=== PATIENT | female | born 1995 | race Caucasian/White ===

== ENCOUNTER 2017-02-21 18:30 | Emergency (ER) | payer OTHER ==
[2017-02-21 18:58] VITALS: BP 116/76; PULSE 87; TEMP 98.3; BMI 38.7
--- NOTE | 2017-02-21 20:19 | PDOC ---
History of Present Illness - General Chief Complaint: Rash Stated Complaint: BREAST PAIN/RASH Time Seen by Provider: 02/21/17 19:23 History Source: Patient Exam Limitations: No Limitations - History of Present Illness Initial Comments: 02/21/17 20:12 Patient is a 21-year-old female morbidly obese presents emergency department for evaluation of dry cracked nipples bilaterally. Patient denies any new lotions soaps or detergents, has been applying her eczema cream which has made it worse. Also states that she has occasional mucus vaginally with no odor, no watery discharge, no bleeding, and is not sexually active, mucous only occurs at certain times of the month. Patient also requesting evaluation for eczema. Past Medical History: Denies. Allergies: No known allergies Medications: Family History: Non-contributory Social History: Denies smoking, alcohol use, or IVDU Vital signs on arrival are notable for pulse of 96. Review of Systems GENERAL/CONSTITUTIONAL: No fever or chills. No weakness. No weight change. HEAD, EYES, EARS, NOSE AND THROAT: No change in vision. No ear pain or discharge. No sore throat. CARDIOVASCULAR: No chest pain or shortness of breath. RESPIRATORY: No cough, wheezing, or hemoptysis. GASTROINTESTINAL: No nausea, vomiting, diarrhea or constipation. No rectal bleeding. GENITOURINARY: No dysuria, frequency, or change in urination. MUSCULOSKELETAL: No joint or muscle swelling or pain. No neck or back pain. SKIN : No rash or easy bruising. Dry pruritic cracked nipples with no discharge. Multiple patches of dry skin consistent with eczema NEUROLOGIC: No headache, vertigo, loss of consciousness, or loss of sensation. PSYCHIATRIC: No depression or anxiety. ENDOCRINE: No increased thirst. No abnormal weight change. HEMATOLOGIC/LYMPHATIC: No anemia, easy bleeding, or history of blood clots. ALLERGIC/IMMUNOLOGIC: No hives or skin allergy. No latex allergy. Physical Exam: GENERAL: The patient is awake, alert, and fully oriented, in no acute distress. EYES: Pupils equal, round and reactive to light, extraocular movements intact, sclera anicteric, conjunctiva clear. ENT: Ears normal, nares patent, oropharynx clear without exudates. Moist mucous membranes. No uvula deviation NECK: Normal range of motion, supple without lymphadenopathy, JVD, or masses. LUNGS: Breath sounds equal, clear to auscultation bilaterally. No wheezes, and no crackles. HEART: Regular rate and rhythm, normal S1 and S2 without murmur, rub or gallop. ABDOMEN: Soft, nontender, normoactive bowel sounds. No guarding, no rebound. No masses. No bruising or abrasions GENITALIA: Cervical os is Closed, cervix nonfriable, no discharge. MUSCULOSKELETAL: Normal range of motion, no edema. No clubbing or cyanosis. No cords, erythema, or tenderness. No CVA Tenderness with fist. NEUROLOGICAL: Cranial nerves II through XII grossly intact. Normal speech, normal gait. PSYCH: Normal mood, normal affect. SKIN/ BREAST: Warm, Dry, normal turgor, no rashes or lesions noted. Dry pruritic cracked skin to bilateral nipples with no dimpling, no discharge, no erythema or edema. Both patches of scaling dry skin to wrists neck and torso. 02/21/17 20:23 Past History - Past Medical History Allergies/Adverse Reactions: Allergies Allergy/AdvReac Type Severity Reaction Status Date / Time No Known Allergies Allergy Verified 02/21/17 18:53 Home Medications: Ambulatory Orders Mineral Oil/Hydrophil Petrolat [Aquaphor Healing Ointment] 50 gm TP BID #1 oint...g. 02/21/17 Nystatin Cream [Mycostatin Cream -] 1 applic TP BID #1 applic 02/21/17 Other medical history: denies - Immunization History Immunization Up to Date: Yes - Suicide/Smoking/Psychosocial Hx Smoking History: Never smoked Hx Alcohol Use: No Drug/Substance Use Hx: No *Physical Exam - Vital Signs Last Vital Signs Temp Pulse Resp BP Pulse Ox 98.3 F 87 20 116/76 100 02/21/17 18:54 02/21/17 18:54 02/21/17 18:54 02/21/17 18:54 02/21/17 18:54 Medical Decision Making - Medical Decision Making 02/21/17 20:15 A/P: Patient here for evaluation of dry cracked nipples consistent with a fungal type infection, patient also with several patches of eczema patient will be given referral for asphalt dauber will give patient prescription for nystatin cream for bilateral nipples as well as recommending Aquaphor. Patient to follow -up with [facility] explained to patient since she is sexually active and there is no evidence of vaginal infection mucus can be normal during cycles because of hormonal imbalances. Patient will follow up, I discussed the physical exam findings, ancillary test results and final diagnoses with the patient. I answered all of the patient's questions. The patient was satisfied with the care received and felt comfortable with the discharge plan and treatment plan. The patient will call to arrange follow-up and will return to the Emergency Department with any new, persistent or worsening symptoms. *DC/Admit/Observation/Transfer Diagnosis at time of Disposition: Nipple dermatitis, Vaginal discharge Eczema Qualifiers: Eczema type: other Qualified Code(s): L30.8 - Other specified dermatitis; L30.8 - Other specified dermatitis - Discharge Dispostion Disposition: HOME Condition at time of disposition: Good Admit: No - Prescriptions Prescriptions: Mineral Oil/Hydrophil Petrolat [Aquaphor Healing Ointment] 50 gm TP BID #1 oint...g. Nystatin Cream [Mycostatin Cream -] 1 applic TP BID #1 applic - Referrals Referrals: Triston Garrett [Non Staff, Medical] - ([phone]) [facility] [place] [place] [Provider Group] - Patient Instructions Additional Instructions: No new lotions, soaps or detergents Follow up with [facility] and Dermatology.
== END 2017-02-21 20:27 | disposition home or self-care (01) ==
LOC: JERFT 18:30
DX: L30.8 Other specified dermatitis (principal); N89.8 Other specified noninflammatory disorders of vagina
CPT/HCPCS: 99281-25

== ENCOUNTER 2017-07-26 11:57 | Emergency (ER) | payer OTHER ==
[2017-07-26 12:03] VITALS: BP 124/74; PULSE 100; TEMP 98.3; BMI 41.9
--- NOTE | 2017-07-26 12:30 | PDOC ---
History of Present Illness - General Chief Complaint: Chest Pain Stated Complaint: COUGH Time Seen by Provider: 07/26/17 12:20 History Source: Patient, Care Provider Exam Limitations: No Limitations - History of Present Illness Initial Comments: 07/26/17 12:35 Pleuritic Chest pain. States has had URI x 1 week+ and was seen by PMD Saturday. Rxed Amoxicillin and Claritin but patient states t5hat cough persists with now pain with deep inspiration that prevents sleep. No palpitations, Diaphoresis, no HX of cardiac diseasase. 07/26/17 12:37 Timing/Duration: reports: getting worse Severity: reports: moderate Associated Symptoms: reports: denies symptoms, fever/chills Past History - Travel Traveled outside of the country in the last 30 days: No Close contact w/someone who was outside of country & ill: No - Past Medical History Allergies/Adverse Reactions: Allergies Allergy/AdvReac Type Severity Reaction Status Date / Time No Known Allergies Allergy Verified 07/26/17 12:00 Home Medications: Ambulatory Orders Albuterol 0.083% Nebulizer Rashmi [Ventolin 0.083% Nebulizer Soln -] 1 neb NEB Q4H PRN #30 vial 07/26/17 Amoxicillin - [Amoxicillin 500mg Capsule -] 500 mg PO TID 07/26/17 predniSONE [Deltasone -] 20 mg PO BID #8 tablet 07/26/17 COPD: No - Immunization History Immunization Up to Date: Yes - Suicide/Smoking/Psychosocial Hx Smoking History: Never smoked Have you smoked in the past 12 months: No Information on smoking cessation initiated: No Hx Alcohol Use: No Drug/Substance Use Hx: No Substance Use Type: None Review of Systems - Review of Systems Able to Perform ROS?: Yes Is the patient limited Danish proficient: Yes Constitutional: Yes: Symptoms Reported, See HPI, Malaise HEENTM: Yes: Symptoms Reported, See HPI, Nose Congestion Respiratory: Yes: Symptoms reported, See HPI, Cough, Wheezing, Other ( reticulocyte chest pain) ABD/GI: No: Symptoms Reported Integumentary: Yes: Symptoms Reported All Other Systems: Reviewed and Negative *Physical Exam - Vital Signs Last Vital Signs Temp Pulse Resp BP Pulse Ox 98.3 F 100 H 18 124/74 100 07/26/17 12:01 07/26/17 12:01 07/26/17 12:01 07/26/17 12:01 07/26/17 12:01 - Physical Exam General Appearance: Yes: Nourished, Appropriately Dressed, Mild Distress, Moderate Distress HEENT: positive: TMs Normal, Nasal Congestion, Rhinorrhea, Sinus Tenderness. negative: Pharynx Normal (adjusted but landmarks easily visualized) Neck: positive: Tender, Supple. negative: Lymphadenopathy (R), Lymphadenopathy (L) Respiratory/Chest: positive: Lungs Clear, Decreased Breath Sounds, Wheezing Gastrointestinal/Abdominal: positive: Normal Bowel Sounds, Soft. negative: Tender Musculoskeletal: positive: Normal Inspection Extremity: positive: Normal Capillary Refill, Normal Inspection, Tender Integumentary: positive: Dry, Warm, Pale Neurologic: positive: banana grader II-XII NML intact, Fully Oriented, Alert, Normal Mood/ Affect, Normal Response, Motor Strength 5/5 *DC/Admit/Observation/Transfer Diagnosis at time of Disposition: Upper respiratory infection, acute - Discharge Dispostion Disposition: HOME Condition at time of disposition: Stable Admit: No - Referrals - Patient Instructions Printed Discharge Instructions: DI for Viral Upper Respiratory Infection -- Adult Additional Instructions: Rest, drink lots of fluids: Teas, water, soups, Pedialyte Saltwater gargles Steamy showers/seem to face break up mucus Avoid contact with others until fevers and cough resolved Lots of handwashing and good hygiene Continue [id number] medications for symptomatic relief Tylenol or Motrin for fever and pain Continue albuterol nebulizers every 4-6 hours for the next 2 days then as needed for continued cough Prednisone as directed until completed Continue amoxicillin as directed Start antihistamines daily Followup with private physician in one to 2 days Return to emergency department / pediatric hospital for worsened symptoms, fevers, dehydration - Post Discharge Activity Forms/Work/School Notes: Back to Work, Back to School
[2017-07-26] MEDS ORDERED: IBUPROFEN 600 MG TABLET (FP) PO ONE ×2 (12:34→12:59)
[2017-07-26] MEDS ORDERED: ALBUTEROL SO4 2.5/IPRATROPIUM 0.5 INH SOL 3 ML VIAL.NEB. NEB ONE (12:34)
[2017-07-26] MEDS ORDERED: DEXAMETHASONE SOD PHOSPHATE 10 MG/1 ML VIAL IM ONE (12:34)
[2017-07-26] MEDS ORDERED: DEXAMETHASONE SOD PHOSPHATE 10 MG/1 ML VIAL ONE (12:59)
--- NOTE | 2017-07-29 17:28 | EKG ---
Test Reason : Blood Pressure : / mmHG Vent. Rate : 102 BPM Atrial Rate : 102 BPM P-R Int : 126 ms QRS Dur : 084 ms QT Int : 330 ms P-R-T Axes : 055 082 040 degrees QTc Int : 430 ms SINUS TACHYCARDIA POSSIBLE LEFT ATRIAL ENLARGEMENT BORDERLINE ECG NO PREVIOUS ECGS AVAILABLE Confirmed by JERSEY SOLIS MD ([id number]) on 07/29/2017 5:28:41 PM Referred By: Confirmed By:JERSEY SOLIS MD
== END 2017-07-26 13:56 | disposition home or self-care (01) ==
LOC: JERFT 11:57
PROC: 3E0F7GC Introduction of Other Therapeutic Substance into Respiratory Tract, Via Natural or Artificial Opening (ICD-10-PCS; principal; 2017-07-26)
PROC: 3E0233Z Introduction of Anti-inflammatory into Muscle, Percutaneous Approach (ICD-10-PCS; 2017-07-26)
DX: J06.9 Acute upper respiratory infection, unspecified (principal)
CPT/HCPCS: 71046-TC-FY; 84703; 93005; 93010; 94640; 96372; 99281-25; J1100

== ENCOUNTER 2017-09-14 16:57 | Emergency (ER) | payer OTHER ==
[2017-09-14 17:13] VITALS: BP 121/75; PULSE 65; TEMP 98.4; BMI 38.7
--- NOTE | 2017-09-14 18:13 | PDOC ---
History of Present Illness - General Chief Complaint: Pain Stated Complaint: PAIN Time Seen by Provider: 09/14/17 17:39 History Source: Patient Exam Limitations: No Limitations - History of Present Illness Initial Comments: 09/14/17 18:06 Patient is a 22-year-old female with no past medical history who presents to emergency department today complaining of right breast pain. Patient states that she felt a lump in her breast started approximately 1 month ago. Today she states that it caused her pain that shot down to the nipple. Denies nipple discharge, fevers, chills, redness around the breast tissue or nipple, nausea, vomiting and diarrhea. Patient is not breast-feeding. Past History - Travel Traveled outside of the country in the last 30 days: No Close contact w/someone who was outside of country & ill: No - Past Medical History Allergies/Adverse Reactions: Allergies Allergy/AdvReac Type Severity Reaction Status Date / Time latex Allergy Verified 09/14/17 17:13 Home Medications: Ambulatory Orders NK [No Known Home Medication] 09/14/17 COPD: No - Immunization History Immunization Up to Date: Yes - Suicide/Smoking/Psychosocial Hx Smoking History: Never smoked Have you smoked in the past 12 months: No Hx Alcohol Use: No Drug/Substance Use Hx: No Substance Use Type: None Review of Systems - Review of Systems Able to Perform ROS?: Yes Comments:: 09/14/17 18:07 CONSTITUTIONAL: Absent: fever, chills, diaphoresis, generalized weakness, malaise, loss of appetite CARDIOVASCULAR: Absent: chest pain, loss of consciousness, palpitations, irregular heart rate, peripheral edema SKIN: Present: R Breast painAbsent: rash, itching, pallor NEUROLOGIC: Absent: headache, focal weakness or paresthesias, dizziness, unsteady gait, seizure, mental status changes, bladder or bowel incontinence PSYCHIATRIC: Absent: anxiety, depression, suicidal or homicidal ideation, hallucinations. Is the patient limited [place] proficient: No *Physical Exam - Vital Signs Last Vital Signs Temp Pulse Resp BP Pulse Ox 98.4 F 65 18 121/75 99 09/14/17 17:10 09/14/17 17:10 09/14/17 17:10 09/14/17 17:10 09/14/17 17:10 - Physical Exam Comments: 09/14/17 18:13 GENERAL: Well developed, well nourished. Awake and alert. No acute distress. NECK: Supple. Full ROM. No JVD. Carotid pulses 2+ and symmetric, without bruits. No thyromegaly. No lymphadenopathy. CARDIOVASCULAR: Regular rate and rhythm. No murmurs, rubs, or gallops. Distal pulses are 2+ and symmetric. BREAST: Round well demarcated, non-fixed, nontender 0.5 cm mass at the 12 o clock position one inch above the nipple, no redness noted. SKIN: Warm and dry. Normal capillary refill. No rashes. No jaundice. NEUROLOGICAL: Alert, awake, appropriate. Cranial nerves 2-12 intact. No deficits to light touch and temperature in face, upper extremities and lower extremities. No motor deficits in the in face, upper extremities and lower extremities. Normoreflexic in the upper and lower extremities. Normal speech. Toes are down- going bilaterally. ED Treatment Course - RADIOLOGY Radiology Studies Ordered: Category Date Time Status BREAST US RIGHT LIMITED [US] Stat Ultrasound 09/14/17 18:01 Ordered Medical Decision Making - Medical Decision Making 09/14/17 19:40 Patient is a 22-year-old female with no past medical history who presents emergency department today with pain to her right breast. On exam patient with 2 rounds well demarcated non-fixated multiple cystic-like lesions. However given pain we will obtain ultrasound to rule out abscess. Ultrasound results as obtained from imaging union contract representative revealed 2 small simple cysts with no evidence of abscess or mass. We'll discharge patient home at this time. Instructed to follow-up with her ABA THERAPIST for further evaluation. Report given to patient. Discharge instructions and return precautions given. Patient questions were answered. *DC/Admit/Observation/Transfer Diagnosis at time of Disposition: Benign breast cyst in female Qualifiers: Laterality: right Qualified Code(s): N60.01 - Solitary cyst of right breast - Discharge Dispostion Disposition: HOME Condition at time of disposition: Stable Decision to Admit order: No - Referrals Referrals: Martine Castorena MD [Staff Physician] - - Patient Instructions Printed Discharge Instructions: DI for Breast Cyst Additional Instructions: Your ultrasound showed 2 simple cysts in your breast. These are benign. You may take Motrin as needed for pain. Please follow the surfacer operator's instructions. Please follow up with her ABA THERAPIST within the next 1-2 weeks for further evaluation. Return to the emergency department if you have increased pain, difficulty breathing, or if you have any new or concerning symptoms. - Post Discharge Activity
== END 2017-09-14 19:48 | disposition home or self-care (01) ==
LOC: JERFT 16:57
DX: N60.01 Solitary cyst of right breast (principal)
CPT/HCPCS: 76642-TC-RT; 99281-25

== ENCOUNTER 2018-01-15 17:36 | Emergency (ER) | payer OTHER ==
[2018-01-15 17:40] VITALS: BP 118/68; PULSE 98; TEMP 98.3; BMI 40.3
--- NOTE | 2018-01-15 17:41 | PDOC ---
Rapid Medical Evaluation Time Seen by Provider: 01/15/18 17:39 Medical Evaluation: Allergies Allergy/AdvReac Type Severity Reaction Status Date / Time latex Allergy Verified 09/14/17 17:13 01/15/18 17:40 I have performed a brief in-person evaluation of this patient. The patient presents with a chief complaint of:hives today. Allergic to latex, cat and dust mites Pertinent physical exam findings: stable and well obinna, skin exam deferred to FT provider I have ordered the following:nothing The patient will proceed to the ED for further evaluation. Discharge Disposition - Diagnosis Rash and nonspecific skin eruption - Referrals - Patient Instructions - Post Discharge Activity
[2018-01-15] MEDS ORDERED: DEXAMETHASONE SOD PHOSPHATE 10 MG/1 ML VIAL IM ONE (18:04)
[2018-01-15] MEDS ORDERED: DEXAMETHASONE SOD PHOSPHATE 10 MG/1 ML VIAL ONE (18:07)
--- NOTE | 2018-01-15 18:12 | PDOC ---
History of Present Illness - General Chief Complaint: Rash Stated Complaint: RASH Time Seen by Provider: 01/15/18 17:39 History Source: Patient Exam Limitations: No Limitations - History of Present Illness Initial Comments: 01/17/18 12:13 pt c/o hives started on left arm yesterday after removing hair weave, pt thinks chemical in the weave caused the reaction. pt has itching and hives to arm, neck and leg. no sob no other contributing factors. Past History - Past Medical History Allergies/Adverse Reactions: Allergies Allergy/AdvReac Type Severity Reaction Status Date / Time latex Allergy Verified 01/15/18 17:40 Home Medications: Ambulatory Orders NK [No Known Home Medication] 09/14/17 COPD: No - Immunization History Immunization Up to Date: Yes - Suicide/Smoking/Psychosocial Hx Smoking History: Never smoked Have you smoked in the past 12 months: No Hx Alcohol Use: No Drug/Substance Use Hx: No Substance Use Type: None Review of Systems - Review of Systems Able to Perform ROS?: Yes Is the patient limited Irish proficient: No Integumentary: Yes: Symptoms Reported *Physical Exam - Vital Signs Last Vital Signs Temp Pulse Resp BP Pulse Ox 98.3 F 98 H 18 118/68 99 01/15/18 17:38 01/15/18 17:38 01/15/18 17:38 01/15/18 17:38 01/15/18 17:38 - Physical Exam General Appearance: Yes: Nourished, Appropriately Dressed HEENT: positive: EOMI, [place] Neck: negative: Tender lateral Respiratory/Chest: positive: Lungs Clear, Normal Breath Sounds. negative: Stridor Cardiovascular: positive: Regular Rhythm, Regular Rate Integumentary: positive: Normal Color, Hives (left inner upper am, left thigh right upper arm and left side neck ) Neurologic: positive: Alert, Normal Mood/Affect, Motor Strength 5/5 Medical Decision Making - Medical Decision Making 01/17/18 12:15 cc: hives, contact dermatitis will give decadron, pt driving will take benadryl at home no resp distress pt agrees with plan all questions answered at discharge. *DC/Admit/Observation/Transfer Diagnosis at time of Disposition: Rash and nonspecific skin eruption - Discharge Dispostion Disposition: HOME Condition at time of disposition: Good - Referrals Referrals: Tamie Ac MD [Primary Care Provider] - - Patient Instructions Additional Instructions: cool baths use oatmeal bath or oatmeal lotion to help soothe the skin take benadryl 50mg every 6-8hrs as needed during the day you can take a non drowsy antihistamine such as Claritin jennifer or zyrtec follow with the ENT doctor for any allergy testing needed [phone] - Post Discharge Activity Forms/Work/School Notes: Back to School
== END 2018-01-15 18:23 | disposition home or self-care (01) ==
LOC: JERFT 17:36
PROC: 3E023GC Introduction of Other Therapeutic Substance into Muscle, Percutaneous Approach (ICD-10-PCS; principal; 2018-01-15)
DX: R21 Rash and other nonspecific skin eruption (principal)
CPT/HCPCS: 99281-25; J1100

== ENCOUNTER 2018-09-17 22:08 | Emergency (ER) | payer OTHER ==
[2018-09-17 22:24] VITALS: BP 106/67; PULSE 95; TEMP 100.4; BMI 39.9
[2018-09-17] MEDS ORDERED: IBUPROFEN 600 MG TABLET (FP) PO ONE ×2 (22:35→22:44)
--- NOTE | 2018-09-17 22:38 | PDOC ---
History of Present Illness - General Chief Complaint: Cold Symptoms Stated Complaint: EAR/FEVER/SORE THROAT Time Seen by Provider: 09/17/18 22:31 - History of Present Illness Initial Comments: 09/17/18 22:38 23-year-old female with 3 days of intermittent fever left ear pain and sore throat as well as upper respiratory symptoms of stuffy nose and cough 09/17/18 22:38 She has no comorbidities. Past History - Past Medical History Allergies/Adverse Reactions: Allergies Allergy/AdvReac Type Severity Reaction Status Date / Time latex Allergy Verified 09/17/18 22:22 Home Medications: Ambulatory Orders Amoxicillin - [Amoxicillin 500mg Capsule -] 500 mg PO TID #30 capsule 09/17/18 COPD: No - Immunization History Immunization Up to Date: Yes - Suicide/Smoking/Psychosocial Hx Smoking History: Never smoked Have you smoked in the past 12 months: No Hx Alcohol Use: No Drug/Substance Use Hx: No Substance Use Type: None Review of Systems - Review of Systems Constitutional: Yes: Fever HEENTM: Yes: Ear Pain, Nose Congestion, Throat Pain Respiratory: Yes: Cough *Physical Exam - Vital Signs Last Vital Signs Temp Pulse Resp BP Pulse Ox 100.4 F H 95 H 18 106/67 98 09/17/18 22:22 09/17/18 22:22 09/17/18 22:22 09/17/18 22:22 09/17/18 22:22 - Physical Exam Comments: 09/17/18 22:37 HEAD: NC/AT EYES: Conjuntiva clear Ears: Canals normal, right tympanic membrane is erythemic and bulging. Left tympanic membrane is erythemic with fluid level behind the tympanic membrane there is no rupture. NOSE: No d/c THROAT: Moist mucous membrances, oral pharanx clear, uvula midline NECK: Supple without adenopathy CARDIAC: S1 S2 LUNGS: CTA Full and Equal breath sounds ABDOMEN: Soft NT ND MS: Full ROM in all joints without edema NEUROLOGIC: No gross sensory or motor deficits, NVID SKIN: Normal color and temperature no lesions or rashes Medical Decision Making - Medical Decision Making 09/17/18 22:36 23-year-old female with left ear otitis media spurts fever will have patient follow-up with ENT she gets chronic ear infections. I will place her on a course of amoxicillin. She assures me there is no chance of . *DC/Admit/Observation/Transfer Diagnosis at time of Disposition: Otitis media, acute suppurative - Discharge Dispostion Disposition: HOME Condition at time of disposition: Stable Decision to Admit order: No - Prescriptions Prescriptions: Amoxicillin - [Amoxicillin 500mg Capsule -] 500 mg PO TID #30 capsule - Referrals Referrals: Idania Shrestha MD [Primary Care Provider] - Sawyer Villar MD [Staff Physician] - - Patient Instructions Printed Discharge Instructions: Middle Ear Infection Additional Instructions: Please take the antibiotics as directed. Return to the emergency room for worsening symptoms. Tylenol Motrin as directed for pain. Follow-up with ear nose and throat doctor in 1-2 days without fail. - Post Discharge Activity
== END 2018-09-17 22:51 | disposition home or self-care (01) ==
LOC: JERFT 22:08
DX: J06.9 Acute upper respiratory infection, unspecified (principal); B97.89 Other viral agents as the cause of diseases classified elsewhere
CPT/HCPCS: 99281-25

== ENCOUNTER 2018-10-01 10:41 | Emergency (ER) | payer OTHER | END 2018-10-01 11:51 | disposition home or self-care (01) | LOC: JERFT 10:41 ==

== ENCOUNTER 2019-03-13 14:32 | Emergency (ER) | payer OTHER ==
[2019-03-13 14:38] VITALS: BP 103/68; PULSE 85; TEMP 98.2; BMI 39.0
--- NOTE | 2019-03-13 14:38 | PDOC ---
Rapid Medical Evaluation Chief Complaint: Allergic Reaction Time Seen by Provider: 03/13/19 14:34 Medical Evaluation: Allergies Allergy/AdvReac Type Severity Reaction Status Date / Time latex Allergy Verified 03/13/19 14:34 03/13/19 14:35 23 year old female finished antibiotics on Saturday now with itchiness and redness to arms and face. denies taking benadryl prior to arrival PE: no hives or swelling noted at this time, uvula midline. A: allergic reaction P: benadryl Discharge Disposition - Diagnosis Allergic reaction Qualifiers: Encounter type: initial encounter Qualified Code(s): T78.40XA - Allergy, unspecified, initial encounter - Referrals - Patient Instructions - Post Discharge Activity
[2019-03-13] MEDS ORDERED: diphenhydrAMINE HCL 25 MG CAPSULE (FP) PO ONE ×2 (15:36→15:44)
--- NOTE | 2019-03-13 16:01 | PDOC ---
History of Present Illness - General Chief Complaint: Allergic Reaction Stated Complaint: ALLERGY REACTION Time Seen by Provider: 03/13/19 14:34 History Source: Patient Exam Limitations: No Limitations - History of Present Illness Initial Comments: 03/13/19 16:01 HISTORY OF PRESENT ILLNESS: 23-year-old woman who presents the emergency department for evaluation of rash for 2 days. Patient denies any change in cosmetics, lotions, cleaning supplies, laundry detergents or diet. Patient noted she was on "an antibiotic" for urinary tract infection which she finished 1 week ago. Patient does not remember the name of the antibiotic other than it has a "C at the beginning." Patient reports she had a similar experience many years ago with minocycline and is concerned that she has an allergy to another antibiotic. She denies any shortness of breath, drooling or vocal changes. No recent travel or sick contacts. PAST MEDICAL HISTORY: Eczema SURGICAL HISTORY: Denies ALLERGIES: Minocycline, latex REVIEW OF SYSTEMS General/Constitutional: Denies fever or chills. Denies weakness, weight change. HEENT: Denies change in vision. Denies ear pain or discharge. Denies sore throat. Cardiovascular: Denies chest pain or shortness of breath. Respiratory: Denies cough, wheezing, or hemoptysis. Gastrointestinal: Denies nausea, vomiting, diarrhea or constipation. Denies rectal bleeding. Genitourinary: Denies dysuria, frequency, or change in urination. Musculoskeletal: Denies joint or muscle swelling or pain. Denies neck or back pain. Skin and breasts: see HPI Neurologic: Denies headache, vertigo, loss of consciousness, or loss of sensation. Psychiatric: Denies depression or anxiety. Endocrine: Denies increased thirst. Denies abnormal weight change. Hematologic/Lymphatic: Denies anemia, easy bleeding, or history of blood clots. Allergic/Immunologic: Denies hives or skin allergy. Denies latex allergy. PHYSICAL EXAM General Appearance: Well-appearing, appropriately dressed. No apparent distress , no intoxication. Neck: Supple. Trachea midline. No tenderness, rigidity, carotid bruit, stridor , lymphadenopathy, or thyromegaly. Respiratory/Chest: Lungs CTAB. No shortness of breath, chest tenderness, respiratory distress, accessory muscle use. No crackles, rales, rhonchi, stridor , wheezing, dullness Cardiovascular: RRR. S1, S2. No JVD, murmur, bradycardia, tachycardia. Vascular Pulses: Dorsalis-Pedis (R): 2+, Dorsalis-Pedis (L): 2+ Gastrointestinal/Abdominal: Normal bowel sounds. Abdomen soft, non-distended. No tenderness or rebound tenderness. No organomegaly, pulsatile mass, guarding, hernia, hepatomegaly, splenomegaly. Musculoskeletal/Extremities: Normal inspection. FROM of all extremities, normal capillary refill. Pelvis Stable. No CVA tenderness. No tenderness to extremities, pedal edema, swelling, erythema or deformity. Integumentary: Appropriate color, dry, warm. No cyanosis, erythema, jaundice or rash Past History - Past Medical History Allergies/Adverse Reactions: Allergies Allergy/AdvReac Type Severity Reaction Status Date / Time minocycline Allergy Severe Hives Verified 03/13/19 14:35 latex Allergy Verified 03/13/19 14:34 Home Medications: Ambulatory Orders Cetirizine HCl/Pseudoephedrine [Allergy+Congestion Relf-D Tab] 1 each PO DAILY # 30 tab 10/01/18 Fluticasone Prop 0.05% Nasal [Flonase -] 1 - 2 spray NS BID #1 spray.pump Tobramycin 0.3% Ophth Soln [Tobrex Ophthalmic Solution -] 2 drop OS QID #1 drops 10/01/18 COPD: No - Immunization History Immunization Up to Date: Yes - Psycho Social/Smoking Cessation Hx Smoking History: Current some day smoker Have you smoked in the past 12 months: No Information on smoking cessation initiated: No Hx Alcohol Use: No Drug/Substance Use Hx: No Substance Use Type: None *Physical Exam - Vital Signs Last Vital Signs Temp Pulse Resp BP Pulse Ox 98.2 F 85 18 103/68 99 03/13/19 14:34 03/13/19 14:34 03/13/19 14:34 03/13/19 14:34 03/13/19 14:34 ED Treatment Course - Medications Given in the ED: ED Medications Discontinued Medications Generic Name Dose Route Start Last Admin Trade Name Freq PRN Reason Stop Dose Admin Diphenhydramine HCl 50 mg 03/13/19 15:36 03/13/19 15:45 Benadryl - PO 03/13/19 15:37 50 mg ONCE ONE Administration Medical Decision Making - Medical Decision Making 03/13/19 15:58 A/P: 23-year-old female with itching and fine rash 1 week after completion of antibiotics No stridor noted No drooling noted Oropharynx is clear Lungs clear to auscultation bilaterally Benadryl 50 mg orally now Discharge home with instructions to and to continue steroid cream previously prescribed by her tools developer. Patient has been instructed to follow-up with her tools developer on Saturday as previously scheduled. Discharge - Discharge Information Problems reviewed: Yes Clinical Impression/Diagnosis: Allergic reaction Qualifiers: Encounter type: initial encounter Qualified Code(s): T78.40XA - Allergy, unspecified, initial encounter Condition: Stable Disposition: HOME - Admission No - Follow up/Referral Referrals: Idania Shrestha MD [Primary Care Provider] - - Patient Discharge Instructions Additional Instructions: Avoid contact with allergens. Lots of handwashing and good hygiene Continue [id number] medications for symptomatic relief- may use allergic eyedrops for itching I Continue antihistamines daily until pollen season is over; Zyrtec, Claritin, Jen during the daytime and Benadryl at nighttime as will make sleepy Tylenol or Motrin for fever and pain Keep Pepcid or Zantac in your purse at all times. If you develop any itching take these medicines. Followup with private physician in one to 2 days as needed Consider following up with an field representative/tools developer for skin testing and possible allergy shots Return to emergency department for worsened symptoms, fevers, dehydration - Post Discharge Activity Work/Back to School Note: Back to Work
== END 2019-03-13 15:58 | disposition home or self-care (01) ==
LOC: JERFT 14:32
DX: T78.40XA Allergy, unspecified, initial encounter (principal); Z88.8 Allergy status to other drugs, medicaments and biological substances; Z91.040 Latex allergy status
CPT/HCPCS: 99281-25

== ENCOUNTER 2020-04-27 23:50 | Emergency (ER) | payer OTHER ==
[2020-04-27 23:55] VITALS: BP 113/65; PULSE 86; TEMP 97.5; BMI 41.9
--- OUTSIDE RECORDS SUMMARY | 2020-04-28 00:05 | XMS ---
:1995 [facility] Care Team Providers Name Role Phone PAZ ARMAS Unavailable Unavailable Re-disclosure Warning The records that you are about to access may contain information from federally- assisted alcohol or drug abuse programs. If such information is present, then the following federally mandated warning applies: This information has been disclosed to you from records protected by federal confidentiality rules (42 CFR part 2). The federal rules prohibit you from making any further disclosure of this information unless further disclosure is expressly permitted by the written consent of the person to whom it pertains or as otherwise permitted by 42 CFR part 2. A general authorization for the release of medical or other information is NOT sufficient for this purpose. The Federal rules restrict any use of the information to criminally investigate or prosecute any alcohol or drug abuse patient.The records that you are about to access may contain highly sensitive health information, the redisclosure of which is protected by Article 27-F of the [facility] Public Health law. If you continue you may haveaccess to information: Regarding HIV / AIDS; Provided by facilities licensed or operated by the [facility] Office of Mental Health; or Provided by the [facility] Office for People With Developmental Disabilities. If such information is present, then the following [facility] mandated warning applies: This information has been disclosed to you from confidential records which are protected by state law. State law prohibits you from making any further disclosure of this information without the specific written consent of the person to whom it pertains, or as otherwise permitted by law. Any unauthorized further disclosure in violation of state law may result in a fine or usp sentence or both. A general authorization for the release of medical or other information is NOT sufficient authorization for further disclosure. 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
--- NOTE | 2020-04-28 00:28 | PDOC ---
History of Present Illness - General Chief Complaint: Eye Problem Stated Complaint: BOTH EYES IRRITATION Time Seen by Provider: 04/28/20 00:27 - History of Present Illness Initial Comments: 04/28/20 00:28 HPI: BL eye pain, itching and lacrimation Patient denies fever, chills, night sweats, VARELA, vision change, chest pain, palpitations, SOB, cough, leg swelling, abdominal pain, nausea, vomiting, diarrhea, constipation, dysuria, hematuria, BPR, lightheadedness, weakness, sensory changes. PMHx: as noted above ROS: as noted SHx: Denies tobacco use; no alcohol use; no rec drugs Allergies: NKDA ROS: GENERAL/CONSTITUTIONAL: No fever or chills. No weakness. HEAD, EYES, EARS, NOSE AND THROAT: No change in vision. No ear pain or discharge. No sore throat. CARDIOVASCULAR: No chest pain or shortness of breath RESPIRATORY: No cough, wheezing, or hemoptysis. GASTROINTESTINAL: No nausea, vomiting, diarrhea or constipation. GENITOURINARY: No dysuria, frequency, or change in urination. MUSCULOSKELETAL: No joint or muscle swelling or pain. No neck or back pain. SKIN: No rash NEUROLOGIC: No headache, vertigo, loss of consciousness, or change in strength/sensation. ENDOCRINE: No increased thirst. No abnormal weight change HEMATOLOGIC/LYMPHATIC: No anemia, easy bleeding, or history of blood clots. ALLERGIC/IMMUNOLOGIC: No hives or skin allergy. PE: GENERAL: Awake, alert, and fully oriented, no acute distress HEAD: No signs of trauma, normocephalic, atraumatic EYES: EOMI, sclera anicteric, conjunctiva clear ENT: Auricles normal inspection, hearing grossly normal, nares patent, oropharynx clear without exudates. Moist mucosa NECK: Normal ROM, no lymphadenopathy LUNGS: No increased work of breathing, symmetrical chest rise, clear to auscultation bilaterally, no wheezes, crackles or rhonchi HEART: Regular rate, regular rhythm, normal S1 and S2, no murmur, peripheral pulses 2+ and equal bilaterally. ABDOMEN: Soft, nondistended, nontender. No guarding, no rebound. No masses. No CVAT MUSCULOSKELETAL: FROM NEUROLOGICAL: Cranial nerves II through XII grossly intact. Normal speech, stable gait, no focal sensorimotor deficits SKIN: Warm, Dry, normal turgor, no rashes or lesions noted 04/28/20 01:21 Past History - Medical History Allergies/Adverse Reactions: Allergies Allergy/AdvReac Type Severity Reaction Status Date / Time minocycline Allergy Severe Hives Verified 04/27/20 23:55 latex Allergy Verified 04/27/20 23:55 Home Medications: Ambulatory Orders Cetirizine HCl/Pseudoephedrine [Allergy+Congestion Relf-D Tab] 1 each PO DAILY #30 tab 10/01/18 Fluticasone Prop 0.05% Nasal [Flonase -] 1 - 2 spray NS BID #1 spray.pump 10/01/18 Tobramycin 0.3% Ophth Soln [Tobrex Ophthalmic Solution -] 2 drop OS QID #1 drops 10/01/18 COPD: No - Reproductive History Is Patient Now?: No - Immunization History Immunization Up to Date: Yes - Psycho-Social/Smoking History Smoking History: Never smoked Have you smoked in the past 12 months: No *Physical Exam - Vital Signs Last Vital Signs Temp Pulse Resp BP Pulse Ox 97.5 F L 86 18 113/65 99 04/27/20 23:52 04/27/20 23:52 04/27/20 23:52 04/27/20 23:52 04/27/20 23:52 Discharge - Discharge Information Problems reviewed: Yes Clinical Impression/Diagnosis: Conjunctivitis, Eye pain Condition: Stable Disposition: HOME - Follow up/Referral Referrals: Idania Shrestha MD [Primary Care Provider] - Rosey Lopez MD [Staff Physician] - Gagan Beebe MD [Staff Physician] - Gonzalo Olivares MD [Staff Physician] - Byron Middleton MD [Staff Physician] - - Patient Discharge Instructions Patient Printed Discharge Instructions: DI for Conjunctivitis Additional Instructions: Additional Instructions: Please return to the emergency department with any new or worsening symptoms or concerns including change in vision, worsening pain, inability to move eyes, fever. Please follow up with your primary care physician within 72 hours and/or ophthalmology. We have attached referrals in your discharge paperwork but you may need to call your insurance for additional referrals in network' Please discontinue taking the antibiotic eye drops; you may continue taking the antihistamine drops as instructed. - Post Discharge Activity Work/Back to School Note: Back to Work
--- NOTE | 2020-04-28 00:29 | PDOC ---
Attending Attestation - Resident Resident Name: El Garcia - ED Attending Attestation I have performed the following: I have examined & evaluated the patient, The case was reviewed & discussed with the resident, I agree w/resident's findings & plan - HPI HPI: 04/28/20 01:03 see resident hpi - Physicial Exam PE: 04/28/20 01:03 see resident exam - Medical Decision Making 04/28/20 01:03 25-year-old female with approximately 4 weeks of bilateral eye irritation, intermittent with morning crusting, unresponsive to antibiotic course as well as antihistamine drops given to her by urgent care Visual acuity grossly intact, See eye exam Patient has opted out of staining do to having to drive home, at this time this may be deferred for outpatient exam as symptoms are bilateral, she has not contact wearing and symptoms are intermittent There is no visible discharge at this time We will DC with outpatient ophthalmology follow-up Discharge - Discharge Information Problems reviewed: Yes Clinical Impression/Diagnosis: Conjunctivitis - Follow up/Referral Referrals: Idania Shrestha MD [Primary Care Provider] - - Patient Discharge Instructions - Post Discharge Activity
== END 2020-04-28 02:00 | disposition home or self-care (01) ==
LOC: JER 23:50
DX: H10.9 Unspecified conjunctivitis (principal)
CPT/HCPCS: 99283-25

== ENCOUNTER 2021-08-22 19:33 | Emergency (ER) | payer OTHER ==
[2021-08-22 19:43] VITALS: BP 115/78; PULSE 98; TEMP 99.3; BMI 41.6
[2021-08-22 21:29] LABS: BASO % 0.4 % (0-2.0); EOS % 1.2 % (0-4.5); HEMATOCRIT 33.8 % (32.4-45.2); HEMOGLOBIN 10.7 GM/dL (10.7-15.3); LYMPH % 21.8 % (8-40); MCH 24.3 pg (25.7-33.7); MCHC 31.7 g/dl (32.0-36.0); MEAN CELL VOLUME 76.7 fl (80-96); MEAN PLT VOLUME 8.4 fl (7.5-11.1); MONO % 7.8 % (3.8-10.2); NEUT % 68.8 % (42.8-82.8); PLATELET COUNT 329 10^3/uL (134-434); RBC 4.41 M/mm3 (3.60-5.2); RDW 17.2 % (11.6-15.6); WHITE BLOOD COUNT 9.4 K/mm3 (4.0-10.0)
[2021-08-22 21:50] LABS: ALBUMIN 3.4 g/dl (3.4-5.0); BLOOD UREA NITROGEN 9.3 mg/dL (7-18); CALCIUM 8.8 mg/dL (8.5-10.1)
[2021-08-22 21:53] LABS: CREATININE 0.7 mg/dL (0.55-1.3)
[2021-08-22 21:55] LABS: BILIRUBIN,TOTAL 0.3 mg/dL (0.2-1); TOT PROT 7.1 g/dl (6.4-8.2)
[2021-08-22 22:21] LABS: PH,URINE 5.5 (5.0-8.0); URINE APPEARANCE CLOUDY; URINE BILIRUBIN NEGATIVE (NEGATIVE); URINE COLOR DK YELLOW; URINE GLUCOSE (UA) NEGATIVE (NEGATIVE); URINE KETONE TRACE (NEGATIVE); URINE LEUK ESTERASE NEGATIVE (NEGATIVE); URINE NITRITE NEGATIVE (NEGATIVE); URINE PROTEIN NEGATIVE (NEGATIVE)
== END 2021-08-22 23:45 | disposition home or self-care (01) ==
LOC: JER 19:33
DX: O20.0 Threatened abortion (principal); Z3A.01 Less than 8 weeks gestation of pregnancy
CPT/HCPCS: 36415; 76817-TC; 80053; 81003; 84702; 85025; 86850; 86900; 86901; 99284-25